=== PATIENT | male | born 1965 | race Caucasian/White ===

== ENCOUNTER 2016-11-05 22:32 | Emergency (ER) | payer SELFPAY ==
[~2016-11-05] VITALS: Ht 177.8 cm; Wt 85.5 kg
[2016-11-05 22:39] VITALS: TEMP 36.8; Ht 177.8 cm; Wt 85.5 kg
[2016-11-05] MEDS ORDERED: XYLOCAINE 1%/SOD BICARB 20 ML VIAL INFIL ONE (23:15)
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
--- NOTE | 2016-11-06 01:53 | EMERGENCY ROOM VISIT NOTE ---
ED Visit Note First contact with patient: 22:59 The patient was seen and examined with Phong Russell PA-C. I agree with the history, physical and findings. Please see the note for disposition and details. GENERAL: Awake, alert, minimally intoxicated appearing, no distress HEAD: Normocephalic, atraumatic. No hensley sign. No raccoon eyes. EYES: Normal conjunctiva. PERRL. EARS: External ears normal. Right TM normal. Left TM normal. NOSE: Atraumatic OROPHARYNX: Lips, tongue, and mucosa unremarkable. No erythema or exudate. NECK: Supple. No tracheal deviation or JVD. No posterior midline tenderness. No step offs noted. RESPIRATORY: CTA bilaterally CARDIAC: Regular rate, normal rhythm. ABDOMEN: Inspection reveals no abnormalities. Soft, non distended. No tenderness to palpation. No hernias. BACK: No midline step offs or tenderness to palpation. Unremarkable except for an abrasion on the left flank. PELVIS: Stable to rock. SKIN: Normal. LYMPH: No adenopathy. MUSCULOSKELETAL: Abrasion and laceration on the left knee. Quad function intact. Good range of motion. Minor abrasions on the left upper extremity. Swelling and ecchymosis with abrasions on the right hand. No open lacerations/ fractures on the right hand. NEURO: GCS 15. Normal sensorium. No sensory or motor deficits noted. The patient has a right hand fracture on xray. A chest x-ray was performed and revealed no pneumothorax, effusion, infiltrate, pulmonary edema, free air under the diaphragm, or wide mediastinum. Knee xray reveals an apparent old FB comparing to old films. No fracture.
[2016-11-06 02:47] VITALS: BP 111/65; PULSE 102; O2SAT 98
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
== END 2016-11-06 03:06 | disposition home or self-care (01) ==
LOC: EDBD 22:32 → C.EDB 22:33
DX: S81.012A Laceration without foreign body, left knee, initial encounter (principal); S62.613A Displaced fracture of proximal phalanx of left middle finger, initial encounter for closed fracture; V29.9XXA Motorcycle rider (driver) (passenger) injured in unspecified traffic accident, initial encounter; F10.920 Alcohol use, unspecified with intoxication, uncomplicated; Y92.488 Other paved roadways as the place of occurrence of the external cause; Y93.89 Activity, other specified

== ENCOUNTER → 2016-11-05 | Outpatient (CLI) | payer OTHER | END | disposition home or self-care (01) | LOC: C.LAB 22:41 | DX: Z02.83 Encounter for blood-alcohol and blood-drug test (principal) ==